=== PATIENT | female | born 1995 | race Two or more races ===

== ENCOUNTER → 2024-09-02 | Emergency (ER) | payer OTHER ==
[~2024-09-02] VITALS: Ht 157.5 cm; Wt 100.7 kg
[~2024-09-02] MED LIST: CEFTIN250 MG PO; ZYRTEC10 M3 PO
[2024-09-02 20:44] VITALS: BP 106/54; O2SAT 98
== END | disposition left against medical advice (07) ==
LOC: ER 19:49
DX: Z53.21 Procedure and treatment not carried out due to patient leaving prior to being seen by health care provider (principal)